=== PATIENT | male | born 1940 | race Caucasian/White ===

== ENCOUNTER → 2016-10-13 | Day surgery (SDC) | payer MEDICARE ==
[~2016-10-13] MED LIST: ADVA250A INH; AMPICILLIN/SULBAC 3 GM/NS 100 ML IV PRN; ASPI-110 PO; BICA50TA PO; CHLORHEXIDINE GLUCONATE 2 % 1 PACK (2 CLOTHS) TOPICAL PRN; INSULIN HUMAN REGULAR 1,000 UNITS/10 ML VIAL SQ PRN; IPRAAER INH; LACTATED RINGER'S 1000 ML IV PRN; LIBRAX PO; LUPRON INJ; MEGE20TA PO; METOPROLOL TARTRATE 25 MG TAB PO PRN; POVIDONE IODINE 5% (ANTISEPSIS KIT) 4 APPLICATIONS EACH NARE PRN; ROSU1TAB4 PO; SODIUM CHLORID 0.9% 500 ML IV PRN; TOPR100T PO; VENTAER INH; WELC625T2 PO; [UNRECOGNIZED DRUG - CODE] PO
[2016-10-13 07:43] VITALS: BP 142/76; PULSE 68; RESP 20; TEMP 97.3; O2SAT 98
== END | disposition home or self-care (01) ==
LOC: PHSDC 06:20
PROVIDERS: ATTEND Otolaryngology
DX: H69.81 Other specified disorders of Eustachian tube, right ear (principal); Z53.09 Procedure and treatment not carried out because of other contraindication
CPT/HCPCS: 99211